=== PATIENT | female | born 1950 | race Caucasian/White ===

== ENCOUNTER 2016-08-15 13:52 | Emergency (ER) | payer OTHER ==
--- NOTE | 2016-08-15 14:18 | ED NURSING NOTES ---
Clinical Report - Nurses [facility] [address] [place] [address] 08/15/2016 13:52 Patient: LILLIAN DIAZ TRIAGE Triage time 14:01. Acuity: LEVEL 4. Chief Complaint: RIGHT EAR PAIN and LEFT EAR PAIN. Alert. --14:06 Alisha Kuhn R.N. 14:01 08/15/16. BP: 126/88. HR: 75. RR: 18. O2 saturation: 95%. Temp: 98.3 F. Pain level now 08/01. --14:06 Alisha Kuhn R.N. Weight: 90.7 kg stated. Height/Length: 69 inches Per Patient. BMI: 29.5. --14:01 Alisha Kuhn R.N. Medications BusPIRone HCl Oral (Tablet 15 mg) 1 tablet, at bedtime. Carbatrol Oral 300 mg 2 tabs BID. Co Q 10 Oral (Capsule 100 mg) 1 capsule, daily. Estradiol Transdermal 0.1 mg, weekly. Levothyroxine Sodium Oral 75 mcg, daily. [place] Citrate Oral 300 mg 2 tabs q day. Magnesium Oral (Capsule 400 mg) 1 capsule, 2x a day. Meloxicam Oral (Tablet 15 mg) 1 tablet, daily. Pristiq Oral (Tablet Extended Release 24 Hour 100 mg) 1 tablet, daily. Pristiq Oral 50mg , daily, one tab for the first 2 weeks-----than 2 tabs for second 2 week. Sertraline HCl Oral (Tablet 25 mg) 3 tablets, daily. Tums Oral. Vitamins/Minerals Oral. --14:03 Alisha Kuhn R.N. Allergies Codeine. Penicillins. PredniSONE. (edema) Reglan. --14:03 Alisha Kuhn R.N. History Arrived by private vehicle. Historian: patient. Accompanied by family. Onset. (about 3 days). Treatment W[employer] SPECIALIST: (took an old antibiotic). SOCIAL HX: Never smoker. No alcohol use or drug use. --14:06 Alisha Kuhn R.N. PROBLEMS: UTI - Urinary Tract Infection. Palpitations. Asthma. Seizure. Epilepsy. Bipolar Disorder. Osteoarthritis. Depression. Thyroid Disease. Deaf. --14:04 Alisha Kuhn R.N. ADDITIONAL SURGERIES: Ankle. Appendectomy. Bladder Suspension. Brain surgery. Carpal Tunnel Surgery. Cholecystectomy. Gangleon cyst. Hysterectomy. Oophorectomy. Salpingectomy. Tonsillectomy & Adenoidectomy. --14:04 Alisha Kuhn R.N. PHYSICAL ASSESSMENT GENERAL / NEURO / PSYCH: Alert. Appears in no acute distress. HEENT: Hearing deficit. --14:06 Alisha Kuhn R.N. NURSING PROGRESS NOTES Patient identifiers checked. Call light placed in reach. Patient ready for evaluation- chart flagged and PA notified. --14:07 Alisha Kuhn R.N. Locked/Released at 08/15/2016 15:28 by Alisha Kuhn R.N.
--- NOTE | 2016-08-15 14:18 | ED CLINICAL REPORT ---
Clinical Report - Physicians/Mid Levels [facility] [address] [place] [address] 08/15/2016 13:52 Patient: LILLIAN DIAZ Time Seen: 14:19 Aug 15 2016. Arrived- By private vehicle. Historian- patient and spouse. CPT: ER phys charges level 3 (#[id number]). HISTORY OF PRESENT ILLNESS Chief Complaint: EARACHE. This started yesterday and is still present. Onset during rest and light activity. Modifying factors. Not worsened by anything. Not relieved by anything. Location- right ear and left ear. The pain is described as mild. The patient has had ear pain. She has had right sided and left sided (possibly from hearing aids.). No ear drainage, hearing loss, nasal discharge or congestion or sinus pressure. No complaint of foreign body in the ear, sore throat or toothache. Similar symptoms previously: None. Recent medical care: The patient was seen recently at another facility in the office. REVIEW OF SYSTEMS No fever, chills, cough, difficulty breathing or chest pain. No nausea, vomiting or skin rash. PAST HISTORY See nurses notes. UTI - Urinary Tract Infection. Palpitations. Asthma. Seizure. Epilepsy. Bipolar Disorder. Osteoarthritis. Depression. Thyroid Disease. Deaf. ADDITIONAL SURGERIES: Ankle. Appendectomy. Bladder Suspension. Brain surgery. Carpal Tunnel Surgery. Cholecystectomy. Gangleon cyst. Hysterectomy. Oophorectomy. Salpingectomy. Tonsillectomy & Adenoidectomy. Medications: BusPIRone HCl Oral (Tablet 15 mg) 1 tablet, at bedtime. Carbatrol Oral 300 mg 2 tabs BID. Co Q 10 Oral (Capsule 100 mg) 1 capsule, daily. Estradiol Transdermal 0.1 mg, weekly. Levothyroxine Sodium Oral 75 mcg, daily. [place] Citrate Oral 300 mg 2 tabs q day. Magnesium Oral (Capsule 400 mg) 1 capsule, 2x a day. Meloxicam Oral (Tablet 15 mg) 1 tablet, daily. Pristiq Oral (Tablet Extended Release 24 Hour 100 mg) 1 tablet, daily. Pristiq Oral 50mg , daily, one tab for the first 2 weeks-----than 2 tabs for second 2 week. Sertraline HCl Oral (Tablet 25 mg) 3 tablets, daily. Tums Oral. Vitamins/Minerals Oral. Allergies: Codeine. Penicillins. PredniSONE. (edema) Reglan. SOCIAL HISTORY Never smoker. No alcohol use or drug use. ADDITIONAL NOTES The nursing notes have been reviewed. PHYSICAL EXAM Vital Signs: 08/15/2016 14:01 BP: 126/88. HR: 75. RR: 18. O2 saturation: 95%. Temp: 98.3 F. Appearance: Alert. No acute distress. Eyes: Eyes normal inspection. Ear (right): There is mild tenderness of the auricle . There is no erythema or fluctuance of the auricle. There is mild pain with movement of the auricle and erythema of the external canal. Right tympanic membrane normal. Ear (left): There is mild tenderness of the auricle . There is no erythema or fluctuance of the auricle. There is mild pain with movement of the auricle and erythema of the external canal. Left tympanic membrane normal. Throat: Pharynx normal. Nose: Nose normal. No tenderness to palpation/percussion over the sinuses. Neck: Normal inspection. Skin: Normal skin color. No rash. Neuro: Oriented X 3. PROGRESS AND PROCEDURES Patient/family counseled. Disposition: Discharged. Condition: stable. CLINICAL IMPRESSION Acute localized right and left otitis externa. Topical preparation prescribed. Systemic antibiotics not prescribed. INSTRUCTIONS Do not allow water in ear. (leave hearing aids out until better.). Warnings: Further evaluation is necessary. GENERAL WARNINGS: Return or contact your physician immediately if your condition worsens or changes unexpectedly, if not improving as expected, or if other problems arise. Your Current Medications: CONTINUE TAKING THE FOLLOWING MEDICATIONS: BusPIRone HCl Oral : Tablet 15 mg, 1 tablet at bedtime. Carbatrol Oral : 300 mg 2 tabs BID. Co Q 10 Oral : Capsule 100 mg, 1 capsule daily. Estradiol Transdermal : 0.1 mg weekly. Levothyroxine Sodium Oral : 75 mcg daily. [place] Citrate Oral : 300 mg 2 tabs q day. Magnesium Oral : Capsule 400 mg, 1 capsule 2x a day. Meloxicam Oral : Tablet 15 mg, 1 tablet daily. Pristiq Oral : Tablet Extended Release 24 Hour 100 mg, 1 tablet daily. Pristiq Oral : 50mg daily, one tab for the first 2 weeks-----than 2 tabs for second 2 week. Sertraline HCl Oral : Tablet 25 mg, 3 tablets daily. Tums Oral. Vitamins/Minerals Oral. Prescription Medications: Cortisporin otic suspension: Instill 4 drops into affected ear every 6 hours for 1 week. Dispense ten (10) mL. No refills. Substitution is permissible. Follow-up: Follow up with your doctor in one week. Call for an appointment. Understanding of the discharge instructions verbalized by patient and family. Discharge instructions reviewed with and understanding was verbalized by spouse. (Electronically signed by Yousif Desai MD 08/15/2016 14:25)
--- NOTE | 2016-08-15 14:18 | ED CLINICAL REPORT ---
Clinical Report - Physicians/Mid Levels [facility] [address] [place] [address] 08/15/2016 13:52 Patient: LILLIAN DIAZ Time Seen: 14:19 Aug 15 2016. Arrived- By private vehicle. Historian- patient and spouse. CPT: ER phys charges level 3 (#[id number]). HISTORY OF PRESENT ILLNESS Chief Complaint: EARACHE. This started yesterday and is still present. Onset during rest and light activity. Modifying factors. Not worsened by anything. Not relieved by anything. Location- right ear and left ear. The pain is described as mild. The patient has had ear pain. She has had right sided and left sided (possibly from hearing aids.). No ear drainage, hearing loss, nasal discharge or congestion or sinus pressure. No complaint of foreign body in the ear, sore throat or toothache. Similar symptoms previously: None. Recent medical care: The patient was seen recently at another facility in the office. REVIEW OF SYSTEMS No fever, chills, cough, difficulty breathing or chest pain. No nausea, vomiting or skin rash. PAST HISTORY See nurses notes. UTI - Urinary Tract Infection. Palpitations. Asthma. Seizure. Epilepsy. Bipolar Disorder. Osteoarthritis. Depression. Thyroid Disease. Deaf. ADDITIONAL SURGERIES: Ankle. Appendectomy. Bladder Suspension. Brain surgery. Carpal Tunnel Surgery. Cholecystectomy. Gangleon cyst. Hysterectomy. Oophorectomy. Salpingectomy. Tonsillectomy & Adenoidectomy. Medications: BusPIRone HCl Oral (Tablet 15 mg) 1 tablet, at bedtime. Carbatrol Oral 300 mg 2 tabs BID. Co Q 10 Oral (Capsule 100 mg) 1 capsule, daily. Estradiol Transdermal 0.1 mg, weekly. Levothyroxine Sodium Oral 75 mcg, daily. [place] Citrate Oral 300 mg 2 tabs q day. Magnesium Oral (Capsule 400 mg) 1 capsule, 2x a day. Meloxicam Oral (Tablet 15 mg) 1 tablet, daily. Pristiq Oral (Tablet Extended Release 24 Hour 100 mg) 1 tablet, daily. Pristiq Oral 50mg , daily, one tab for the first 2 weeks-----than 2 tabs for second 2 week. Sertraline HCl Oral (Tablet 25 mg) 3 tablets, daily. Tums Oral. Vitamins/Minerals Oral. Allergies: Codeine. Penicillins. PredniSONE. (edema) Reglan. SOCIAL HISTORY Never smoker. No alcohol use or drug use. ADDITIONAL NOTES The nursing notes have been reviewed. PHYSICAL EXAM Vital Signs: 08/15/2016 14:01 BP: 126/88. HR: 75. RR: 18. O2 saturation: 95%. Temp: 98.3 F. Appearance: Alert. No acute distress. Eyes: Eyes normal inspection. Ear (right): There is mild tenderness of the auricle . There is no erythema or fluctuance of the auricle. There is mild pain with movement of the auricle and erythema of the external canal. Right tympanic membrane normal. Ear (left): There is mild tenderness of the auricle . There is no erythema or fluctuance of the auricle. There is mild pain with movement of the auricle and erythema of the external canal. Left tympanic membrane normal. Throat: Pharynx normal. Nose: Nose normal. No tenderness to palpation/percussion over the sinuses. Neck: Normal inspection. Skin: Normal skin color. No rash. Neuro: Oriented X 3. PROGRESS AND PROCEDURES Patient/family counseled. Disposition: Discharged. Condition: stable. CLINICAL IMPRESSION Acute localized right and left otitis externa. Topical preparation prescribed. Systemic antibiotics not prescribed. INSTRUCTIONS Do not allow water in ear. (leave hearing aids out until better.). Warnings: Further evaluation is necessary. GENERAL WARNINGS: Return or contact your physician immediately if your condition worsens or changes unexpectedly, if not improving as expected, or if other problems arise. Your Current Medications: CONTINUE TAKING THE FOLLOWING MEDICATIONS: BusPIRone HCl Oral : Tablet 15 mg, 1 tablet at bedtime. Carbatrol Oral : 300 mg 2 tabs BID. Co Q 10 Oral : Capsule 100 mg, 1 capsule daily. Estradiol Transdermal : 0.1 mg weekly. Levothyroxine Sodium Oral : 75 mcg daily. [place] Citrate Oral : 300 mg 2 tabs q day. Magnesium Oral : Capsule 400 mg, 1 capsule 2x a day. Meloxicam Oral : Tablet 15 mg, 1 tablet daily. Pristiq Oral : Tablet Extended Release 24 Hour 100 mg, 1 tablet daily. Pristiq Oral : 50mg daily, one tab for the first 2 weeks-----than 2 tabs for second 2 week. Sertraline HCl Oral : Tablet 25 mg, 3 tablets daily. Tums Oral. Vitamins/Minerals Oral. Prescription Medications: Cortisporin otic suspension: Instill 4 drops into affected ear every 6 hours for 1 week. Dispense ten (10) mL. No refills. Substitution is permissible. Follow-up: Follow up with your doctor in one week. Call for an appointment. Understanding of the discharge instructions verbalized by patient and family. Discharge instructions reviewed with and understanding was verbalized by spouse. (Electronically signed by Yousif Desai MD 08/15/2016 14:25)
--- NOTE | 2016-08-15 14:18 | ED NURSING NOTES ---
Clinical Report - Nurses [facility] [address] [place] [address] 08/15/2016 13:52 Patient: LILLIAN DIAZ TRIAGE Triage time 14:01. Acuity: LEVEL 4. Chief Complaint: RIGHT EAR PAIN and LEFT EAR PAIN. Alert. --14:06 Alisha Kuhn R.N. 14:01 08/15/16. BP: 126/88. HR: 75. RR: 18. O2 saturation: 95%. Temp: 98.3 F. Pain level now 08/01. --14:06 Alisha Kuhn R.N. Weight: 90.7 kg stated. Height/Length: 69 inches Per Patient. BMI: 29.5. --14:01 Alisha Kuhn R.N. Medications BusPIRone HCl Oral (Tablet 15 mg) 1 tablet, at bedtime. Carbatrol Oral 300 mg 2 tabs BID. Co Q 10 Oral (Capsule 100 mg) 1 capsule, daily. Estradiol Transdermal 0.1 mg, weekly. Levothyroxine Sodium Oral 75 mcg, daily. [place] Citrate Oral 300 mg 2 tabs q day. Magnesium Oral (Capsule 400 mg) 1 capsule, 2x a day. Meloxicam Oral (Tablet 15 mg) 1 tablet, daily. Pristiq Oral (Tablet Extended Release 24 Hour 100 mg) 1 tablet, daily. Pristiq Oral 50mg , daily, one tab for the first 2 weeks-----than 2 tabs for second 2 week. Sertraline HCl Oral (Tablet 25 mg) 3 tablets, daily. Tums Oral. Vitamins/Minerals Oral. --14:03 Alisha Kuhn R.N. Allergies Codeine. Penicillins. PredniSONE. (edema) Reglan. --14:03 Alisha Kuhn R.N. History Arrived by private vehicle. Historian: patient. Accompanied by family. Onset. (about 3 days). Treatment BUSHEL GIRL: (took an old antibiotic). SOCIAL HX: Never smoker. No alcohol use or drug use. --14:06 Alisha Kuhn R.N. PROBLEMS: UTI - Urinary Tract Infection. Palpitations. Asthma. Seizure. Epilepsy. Bipolar Disorder. Osteoarthritis. Depression. Thyroid Disease. Deaf. --14:04 Alisha Kuhn R.N. ADDITIONAL SURGERIES: Ankle. Appendectomy. Bladder Suspension. Brain surgery. Carpal Tunnel Surgery. Cholecystectomy. Gangleon cyst. Hysterectomy. Oophorectomy. Salpingectomy. Tonsillectomy & Adenoidectomy. --14:04 Alisha Kuhn R.N. PHYSICAL ASSESSMENT GENERAL / NEURO / PSYCH: Alert. Appears in no acute distress. HEENT: Hearing deficit. --14:06 Alisha Kuhn R.N. NURSING PROGRESS NOTES Patient identifiers checked. Call light placed in reach. Patient ready for evaluation- chart flagged and PA notified. --14:07 Alisha Kuhn R.N. Locked/Released at 08/15/2016 15:28 by Alisha Kuhn R.N.
--- NOTE | 2016-08-15 15:28 | ED MED RECONCILIATION SUMMARY ---
Patient: LILLIAN DIAZ Medication Reconciliation Report [facility] VisitID: [id number] [address] [place] [address] 65y, F Registration Date/Time: 08/15/2016 Weight: 90.7 kg Height/Length: 69 in. BMI: 29.5 ALLERGIES: Codeine, Penicillins, PredniSONE, Reglan The patient's Home Medications are listed below: CONTINUE TAKING THE FOLLOWING MEDICATIONS: BusPIRone HCl Oral (15 mg) 1 tablet, at bedtime Carbatrol Oral 300 mg 2 tabs BID Co Q 10 Oral (100 mg) 1 capsule, daily Estradiol Transdermal 0.1 mg, weekly Levothyroxine Sodium Oral 75 mcg, daily [place] Citrate Oral 300 mg 2 tabs q day Magnesium Oral (400 mg) 1 capsule, 2x a day Meloxicam Oral (15 mg) 1 tablet, daily Pristiq Oral (100 mg) 1 tablet, daily Pristiq Oral 50mg , daily, one tab for the first 2 weeks-----than 2 tabs for second 2 week Sertraline HCl Oral (25 mg) 3 tablets, daily Tums Oral Vitamins/Minerals Oral The source(s) of the original Home Medication information: Not obtained. The following Medications were given to the patient in the Emergency Department: None. The following Medications were prescribed to the patient: Cortisporin otic suspension: Instill 4 drops into affected ear every 6 hours for 1 week. Dispense ten (10) mL. No refills. Substitution is permissible. -- Yousif Desai MD
--- NOTE | 2016-08-15 15:28 | ED MAR SUMMARY ---
..... Medication Administration Record [facility] [address], [place] [id number] Patient: LILLIAN DIAZ Visit ID: [id number] 65y, F Weight: 90.7 kg Height/Length: 69 in BMI: 29.5 ALLERGIES: Codeine, Penicillins, PredniSONE, Reglan
--- NOTE | 2016-08-15 15:28 | ED MAR SUMMARY ---
..... Medication Administration Record [facility] [address] [place], [place] [id number] Patient: LILLIAN DIAZ Visit ID: [id number] 65y, F Weight: 90.7 kg Height/Length: 69 in BMI: 29.5 ALLERGIES: Codeine, Penicillins, PredniSONE, Reglan
--- NOTE | 2016-08-15 15:28 | ED MED RECONCILIATION SUMMARY ---
Patient: LILLIAN DIAZ Medication Reconciliation Report [facility] VisitID: [id number] [address] [place] [address] 65y, F Registration Date/Time: 08/15/2016 Weight: 90.7 kg Height/Length: 69 in. BMI: 29.5 ALLERGIES: Codeine, Penicillins, PredniSONE, Reglan The patient's Home Medications are listed below: CONTINUE TAKING THE FOLLOWING MEDICATIONS: BusPIRone HCl Oral (15 mg) 1 tablet, at bedtime Carbatrol Oral 300 mg 2 tabs BID Co Q 10 Oral (100 mg) 1 capsule, daily Estradiol Transdermal 0.1 mg, weekly Levothyroxine Sodium Oral 75 mcg, daily [place] Citrate Oral 300 mg 2 tabs q day Magnesium Oral (400 mg) 1 capsule, 2x a day Meloxicam Oral (15 mg) 1 tablet, daily Pristiq Oral (100 mg) 1 tablet, daily Pristiq Oral 50mg , daily, one tab for the first 2 weeks-----than 2 tabs for second 2 week Sertraline HCl Oral (25 mg) 3 tablets, daily Tums Oral Vitamins/Minerals Oral The source(s) of the original Home Medication information: Not obtained. The following Medications were given to the patient in the Emergency Department: None. The following Medications were prescribed to the patient: Cortisporin otic suspension: Instill 4 drops into affected ear every 6 hours for 1 week. Dispense ten (10) mL. No refills. Substitution is permissible. -- Yousif Desai MD
--- NOTE | 2016-08-15 15:28 | ED DISCHARGE INSTRUCTIONS ---
Patient: LILLIAN DIAZ General Instructions [facility] VisitID: [id number] [address] [place] [address] 65y, F Registration Date/Time: 08/15/2016 Acute localized right and left otitis externa. Topical preparation prescribed. Systemic antibiotics not prescribed. INSTRUCTIONS Do not allow water in ear. (leave hearing aids out until better.). Warnings: Further evaluation is necessary. GENERAL WARNINGS: Return or contact your physician immediately if your condition worsens or changes unexpectedly, if not improving as expected, or if other problems arise. Your Current Medications: CONTINUE TAKING THE FOLLOWING MEDICATIONS: BusPIRone HCl Oral : Tablet 15 mg, 1 tablet at bedtime. Carbatrol Oral : 300 mg 2 tabs BID. Co Q 10 Oral : Capsule 100 mg, 1 capsule daily. Estradiol Transdermal : 0.1 mg weekly. Levothyroxine Sodium Oral : 75 mcg daily. [place] Citrate Oral : 300 mg 2 tabs q day. Magnesium Oral : Capsule 400 mg, 1 capsule 2x a day. Meloxicam Oral : Tablet 15 mg, 1 tablet daily. Pristiq Oral : Tablet Extended Release 24 Hour 100 mg, 1 tablet daily. Pristiq Oral : 50mg daily, one tab for the first 2 weeks-----than 2 tabs for second 2 week. Sertraline HCl Oral : Tablet 25 mg, 3 tablets daily. Tums Oral. Vitamins/Minerals Oral. Prescription Medications: Cortisporin otic suspension: Instill 4 drops into affected ear every 6 hours for 1 week. Dispense ten (10) mL. No refills. Substitution is permissible. Follow-up: Follow up with your doctor in one week. Call for an appointment. Understanding of the discharge instructions verbalized by patient and family. Discharge instructions reviewed with and understanding was verbalized by spouse. ADDITIONAL INFORMATION External Ear Infection [Adult] This is an infection in the ear canal due to an overgrowth of bacteria or fungus. This often occurs a few days after water gets trapped in the ear canal (swimming or bathing). It may also occur after cleaning too deeply in the ear canal with a cotton swab or other object. Sometimes hair care products get into the ear canal and cause this problem. There may be itching, redness, drainage, or swelling of the ear canal and temporary loss of hearing. Home Care: Do not try to clean the ear canal. That could push pus and bacteria deeper into the canal. Use the drops prescribed to reduce swelling and fight the infection. If an EAR WICK was placed in the ear canal, apply drops right onto the end of the wick. The wick will draw the medicine into the ear canal even if it is swollen closed. Do not allow water to get into your ear when bathing. No swimming during this time. A cotton ball may be loosely placed in the outer ear to absorb any drainage. You may use acetaminophen (Tylenol) or ibuprofen (Motrin, Advil) to control pain, unless another medicine was prescribed. [NOTE: If you have chronic liver or kidney disease or ever had a stomach ulcer or GI bleeding, talk with your doctor before using these medicines.] Preventing Future Infections: You can usually avoid this problem by using an eardrop that removes the water from your ear canal when you feel there is water trapped there. You can get these drops over the counter (Swim Ear, Aqua Ear and other brands). Follow Up with your doctor or this facility in one week or as instructed by our staff. Get Prompt Medical Attention if any of the following occur: Ear pain becomes worse or does not begin to improve after 3 days of treatment Redness or swelling of the outer ear occurs or gets worse Headache, painful or stiff neck, Feeling drowsy or confused Fever of 100.4F (38C) or higher, or as directed by your healthcare provider Seizure You have been given the following additional information: External Ear Infection (Adult) Do not allow water in ear. (Electronically signed by Yousif Desai MD 08/15/2016 14:25)
== END 2016-08-15 14:25 | disposition home or self-care (01) ==
LOC: ED SRH 13:52
DX: H60.593 Other noninfective acute otitis externa, bilateral (principal); E07.9 Disorder of thyroid, unspecified; G40.909 Epilepsy, unspecified, not intractable, without status epilepticus; Z88.0 Allergy status to penicillin; Z88.5 Allergy status to narcotic agent; Z88.8 Allergy status to other drugs, medicaments and biological substances

== ENCOUNTER 2016-10-03 13:06 | Emergency (ER) | payer OTHER ==
--- NOTE | 2016-10-03 16:17 | ED CLINICAL REPORT ---
Clinical Report - Physicians/Mid Levels [facility]ly [facility] [address] [place] [address] 10/03/2016 13:07 Patient: LILLIAN DIAZ Time Seen: 13:15; initial patient contact, initial documentation, patient care assumed. Arrived- By private vehicle. Historian- patient and significant other. HISTORY OF PRESENT ILLNESS Chief Complaint: DYSURIA. This started 2 days ago and still present but is improving. The symptoms are described as moderate. Modifying factors. Not worsened by anything. Not relieved by anything. The patient has had abdominal pain and pelvic pain. No vaginal pain, low back pain, flank pain, vaginal discharge or pain with urination. No urinary frequency or urgency of urination. The patient has had hematuria. (self catheterizes herself at least twice daily and lately the urine has been darker than usual). Similar symptoms previously: None. Recent medical care: Not recently seen/assessed. REVIEW OF SYSTEMS The patient has had nausea. She has had vomiting (vomiting all day yesterday, only once today). She has had mild loose stools. This has occurred twice. No bloody, watery, mucous containing or blood-tinged diarrhea. No black stools, fever, difficulty breathing or chest pain. All systems otherwise negative, except as recorded above. PAST HISTORY See nurses notes. ( PROBLEMS: Otitis Externa. UTI - Urinary Tract Infection. Palpitations. Asthma. Seizure. Epilepsy. Bipolar Disorder. Osteoarthritis. Depression. Thyroid Disease. Deaf. --13:23 Natalie Loyola R.N.). SOCIAL HISTORY Never smoker. No alcohol use or drug use. Recent travel by airplane in the last week- [facility]ly [facility]. Participated in outdoor activities (flew back yesterday from [place], went to [facility]). No recent foreign travel or travel in endemic area. Is a local resident. FAMILY HISTORY Negative. ADDITIONAL NOTES The nursing notes have been reviewed with agreement regarding the chief complaint, HPI, ROS, PMH and patient medications and allergies. PHYSICAL EXAM Vital Signs: 10/03/2016 13:17 BP: 131/83. HR: 72. RR: 14. O2 saturation: 94%. Temp: 97.8 F. Pain level now: 09/29. Have been reviewed as normal and appear to be correct. Appearance: Alert. Oriented X3. No acute distress. HEENT: Normal external inspection. ENT: Pharynx normal. Neck: Neck supple. CVS: Heart sounds normal. Respiratory: No respiratory distress. Breath sounds normal. Chest nontender. Abdomen: Soft and nontender. Bowel sounds normal. No organomegaly. No mass. Back: Normal external inspection. Skin: Skin warm and dry. Normal skin color. No rash. Normal skin turgor. Extremities: Extremities nontender. No lower extremity edema. Neuro: Oriented X 3. Mood/affect normal. No motor deficit. No sensory deficit. LABS, X-RAYS, AND EKG Laboratory Tests: UA-Culture if indicated: (MAKAYLA: 10/03/2016 14:37) ( [facility] [place]03[place] 15:24) Final results Test Result Flag Units (Reference) URINE COLOR YELLOW URINE APPEARANCE CLEAR URINE GLUCOSE NEGATIVE (NEGATIVE) URINE BILIRUBIN NEGATIVE (NEGATIVE) URINE KETONE NEGATIVE (NEGATIVE) URINE SPECIFIC GRAVITY 1.010 (1.010-1.030) URINE PH 6.5 (5.0-8.0) URINE PROTEIN NEGATIVE (NEGATIVE) URINE UROBILINOGEN 0.2 EU/dL (0.2-1.0) URINE NITRITE NEGATIVE (NEGATIVE) URINE BLOOD NEGATIVE (NEGATIVE) URINE LEUK ESTERASE NEGATIVE (NEGATIVE) URINE RBC 0-1 rbc/hpf (0-1) URINE WBC 3-5 wbc/hpf (0-1) URINE EPITHELIAL CELLS 1-3 EPI/hpf (0-5) URINE BACTERIA MANY (4+) (NONE SEEN) URINE COMMENT CULTURE INDICATED URINE CULTURES ARE SET-UP BASED ON THE FOLLOWING CRITERIA:POSITIVE NITRITEPOSITIVE LEUKOCYTE ESTERASEGREATER THAN 10 WHITE BLOOD CELLSMODERATE (2+) OR GREATER BACTERIA CBC w Diff: (MAKAYLA: 10/03/2016 14:07) ( [facility] 10/03/2016 14:16) Final results Test Result Flag Units (Reference) WHITE BLOOD COUNT 7.4 K/uL (4.5-11.5) RED BLOOD COUNT 3.75 L M/uL (4.00-5.20) HEMOGLOBIN 12.6 gm/dL (12.0-16.0) HEMATOCRIT 37.5 % (36.0-46.0) MEAN CELL VOLUME 100 fL (80-100) MEAN CORPUSCULAR HGB 34 pg (26-34) MEAN CORPUSCULAR HGB CONC 34 g/dL (31-37) RED CELL DISTRIBUTION WIDTH 13.4 % (11.6-14.8) PLATELET COUNT 280 K/uL (150-400) NEUTROPHIL % 63.2 % (50-75) LYMPH % 24.8 L % (25-40) MONO % 7.1 % (3-14) EOSINOPHIL % 4.3 H % (0-4) BASOPHIL % 0.6 % (0-2) [id number]: (MAKAYLA: 10/03/2016 14:07) ( MsgRcvd 10/03/2016 14:38) Final results Test Result Flag Units (Reference) CARBAMAZEPINE/TEGRETOL 8.7 ug/mL (4.0-12.0) CMP: (MAKAYLA: 10/03/2016 14:07) ( WagRcvd 10/03/2016 14:34) Final results Test Result Flag Units (Reference) GLUCOSE 102 mg/dL (70-110) BUN 15 mg/dL (7-18) CREATININE 1.0 mg/dL (0.6-1.3) Estimated GFR 59.14 mL/min Estimated GFR- >60 mL/min Note: Persistent reduction over 3 months in eGFR<60 mL/min/1.73 m2 defines CKD. Patients with eGFR values>=60 mL/min/1.73 m2 may also have CKD if evidence ofpersistent proteinuria. Additional information may be foundat [email or web address].org. SODIUM 141 mmol/L (136-145) POTASSIUM 3.6 mmol/L (3.5-5.1) CHLORIDE 106 mmol/L (98-107) CARBON DIOXIDE 28 mmol/L (21-32) CALCIUM 9.3 mg/dL (8.5-10.1) TOTAL PROTEIN 6.9 g/dL (6.4-8.2) ALBUMIN 3.4 g/dL (3.3-5.0) BILIRUBIN, TOTAL 0.5 mg/dL (0.0-1.0) ALKALINE PHOSPHATASE 81 U/L (46-116) AST (SGOT) 24 U/L (15-37) ALT (SGPT) 23 U/L (12-78) LIPASE 86 U/L (73-393) AMYLASE 31 U/L (25-115) . PROGRESS AND PROCEDURES Course of Care: 10/03/2016 14:53 BP: 136/96. HR: 66. RR: 15. O2 saturation: 97%. Pain level now: 5/10. Vital Signs: have been reviewed as normal and appear to be correct. Patient and spouse counseled in person regarding the patient's stable condition, test results and diagnosis. 15:27. Differential Diagnosis: I considered gastritis, peptic ulcer disease, ischemia, gastroesophageal reflux disease, gastroparesis, Crohn's disease, ulcerative colitis, small bowel obstruction, gastric outlet obstruction, colonic obstruction, colon cancer, gastroenteritis, cholecystitis, pancreatitis, viral syndrome, enterocolitis, urinary tract infection, hepatitis and sepsis as a possible cause of vomiting in this patient. This is a partial list of diagnoses considered. (urosepsis). Above considerations are based on history, physical exam, reassessment and laboratory data. Differential diagnosis was discussed with patient and patient's spouse. Disposition: Discharged home in good and improved condition (16:16). Condition: good and stable. CLINICAL IMPRESSION Acute urinary tract infection with cystitis. No pyelonephritis or hematuria. Not associated with indwelling catheter or obstruction. Acute noninfectious gastroenteritis. INSTRUCTIONS Warnings: GENERAL WARNINGS: Return or contact your physician immediately if your condition worsens or changes unexpectedly, if not improving as expected, or if other problems arise. Specifically return if problem worsens. Prescription Medications: Zofran 4 mg: Take 1 orally every six hours as needed for nausea/vomiting. Dispense ten (10). No refills. Substitution is permissible. Cipro 500 mg: take 1 tab orally every 12 hours for 10 days. Dispense twenty (20). No refills. Substitution is permissible. Ultram 50 mg tablets: take 1-2 orally every 6 hours as needed for pain. Dispense twenty (20). No refills. Substitution is permissible. Follow-up: Follow up with your doctor in about two days even if well. Call for an appointment. Summary of care provided to patient and family. Understanding of the discharge instructions verbalized by patient. (Electronically signed by Marta Rosario A.R.N.P. 10/03/2016 17:51)
--- NOTE | 2016-10-03 16:17 | ED ORDER SUMMARY ---
..... Patient: LILLIAN DIAZ OrderSheet VisitID: [id number] [place] [address] 66y, F Registration Date/Time: 10/03/2016 ORDER SHEET Weight: 92.5 kg (stated) Allergies: Codeine, Penicillins, PredniSONE, Reglan GENERAL ORDERS: CBC w Diff Urgent (13:38 10/03/2016 HBivens A.R.N.P.) (Ack 13:38 IJurca ER Tech1) (14:12 RCollier R.N.) CMP Urgent (13:38 10/03/2016 HBivens A.R.N.P.) (Ack 13:38 IJurca ER Tech1) (14:12 RCollier R.N.) UA-Culture if indicated Urgent (13:38 10/03/2016 HBivens A.R.N.P.) (Ack 13:38 IJurca ER Tech1) (14:42 RMarsden R.N.) Amylase Urgent (13:38 10/03/2016 HBivens A.R.N.P.) (Ack 13:38 IJurca ER Tech1) (14:12 RCollier R.N.) Lipase Urgent (13:38 10/03/2016 HBivens A.R.N.P.) (Ack 13:38 IJurca ER Tech1) (14:12 RCollier R.N.) Carbamazepine (Tegretol) Urgent (13:57 10/03/2016 HBivens A.R.N.P.) (Ack 13:58 IJurca ER Tech1) (14:12 RCollier R.N.) MEDICATION ORDERS: IV FLUIDS: IV NS : initial bolus 1000 mL (1000 mL/hr), then none - (NOW) (13:37 10/03/2016 HBivens A.R.N.P.) (Ack 13:41 RMarsden R.N.) (14:41 RMarsden R.N.) Zofran IV 4 mg (NOW) (13:37 10/03/2016 HBivens A.R.N.P.) (Ack 13:41 RMarsden R.N.) Toradol IV 30 mg (NOW) (13:37 10/03/2016 HBivens A.R.N.P.) (Ack 13:41 RMarsden R.N.) (14:42 RMarsden R.N.) IV Saline Lock (13:38 10/03/2016 HBivens A.R.N.P.) (Ack 13:41 RMarsden R.N.) (14:40 RMarsden R.N.) Dilaudid IV 1 mg (HIGH ALERT MEDICATION, NOW) (15:27 10/03/2016 HBivens A.R.N.P.) (16:38 LSullivan R.N.) Zofran IV 4 mg (NOW) (15:27 10/03/2016 HBivens A.R.N.P.) (16:37 LSullivan R.N.) ORDER SHEET NOTES: [Electronically signed by Marta RosarioR.N.PBoby (17:51 10/03/2016)] [Electronically signed by Natalie Loyola R.N. (18:54 10/03/2016)] [Electronically locked/signed by Natalie Loyola R.N. (18:54 10/03/2016)]
--- NOTE | 2016-10-03 16:17 | ED ORDER SUMMARY ---
..... Patient: LILLIAN DIAZ OrderSheet [facility] VisitID: [id number] [place] [address] 66y, F Registration Date/Time: 10/03/2016 ORDER SHEET Weight: 92.5 kg (stated) Allergies: Codeine, Penicillins, PredniSONE, Reglan GENERAL ORDERS: CBC w Diff Urgent (13:38 10/03/2016 HBivens A.R.N.P.) (Ack 13:38 IJurca ER Tech1) (14:12 RCollier R.N.) CMP Urgent (13:38 10/03/2016 HBivens A.R.N.P.) (Ack 13:38 IJurca ER Tech1) (14:12 RCollier R.N.) UA-Culture if indicated Urgent (13:38 10/03/2016 HBivens A.R.N.P.) (Ack 13:38 IJurca ER Tech1) (14:42 RMarsden R.N.) Amylase Urgent (13:38 10/03/2016 HBivens A.R.N.P.) (Ack 13:38 IJurca ER Tech1) (14:12 RCollier R.N.) Lipase Urgent (13:38 10/03/2016 HBivens A.R.N.P.) (Ack 13:38 IJurca ER Tech1) (14:12 RCollier R.N.) Carbamazepine (Tegretol) Urgent (13:57 10/03/2016 HBivens A.R.N.P.) (Ack 13:58 IJurca ER Tech1) (14:12 RCollier R.N.) MEDICATION ORDERS: IV FLUIDS: IV NS : initial bolus 1000 mL (1000 mL/hr), then none - (NOW) (13:37 10/03/2016 HBivens A.R.N.P.) (Ack 13:41 RMarsden R.N.) (14:41 RMarsden R.N.) Zofran IV 4 mg (NOW) (13:37 10/03/2016 HBivens A.R.N.P.) (Ack 13:41 RMarsden R.N.) Toradol IV 30 mg (NOW) (13:37 10/03/2016 HBivens A.R.N.P.) (Ack 13:41 RMarsden R.N.) (14:42 RMarsden R.N.) IV Saline Lock (13:38 10/03/2016 HBivens A.R.N.P.) (Ack 13:41 RMarsden R.N.) (14:40 RMarsden R.N.) Dilaudid IV 1 mg (HIGH ALERT MEDICATION, NOW) (15:27 10/03/2016 HBivens A.R.N.P.) (16:38 LSullivan R.N.) Zofran IV 4 mg (NOW) (15:27 10/03/2016 HBivens A.R.N.P.) (16:37 LSullivan R.N.) ORDER SHEET NOTES: [Electronically signed by Marta RosarioR.N.PBoby (17:51 10/03/2016)] [Electronically signed by Natalie Loyola R.N. (18:54 10/03/2016)] [Electronically locked/signed by Natalie Loyola R.N. (18:54 10/03/2016)]
--- NOTE | 2016-10-03 16:17 | ED NURSING NOTES ---
Clinical Report - Nurses [facility] [address] [place] [address] 10/03/2016 13:07 [id number] Triage time 13:17. Acuity: LEVEL 4. Chief Complaint: PELVIC PAIN. 13:28 10/03/16. Alert. No acute distress. SEPSIS SCREEN: Sepsis Screen. Negative (no infection suspected/documented). SYLVIA COMA SCORE: [place] Coma Scale: 15- eyes open spontaneously (4); best verbal response- oriented x 4 (5); best motor response- obeys commands (6). --13:28 Natalie Loyola R.N. 13:17 10/03/16. BP: 131/83. HR: 72. RR: 14. O2 saturation: 94%. Temp: 97.8 F. Pain level now: 09/29. --13:28 Natalie Loyola R.N. 13:30 10/03/16. --13:31 Natalie Loyola R.N. Weight: 92.5 kg stated. Height/Length: 67 inches. BMI: 32. --13:25 Natalie Loyola R.N. Medications BusPIRone HCl Oral (Tablet 15 mg) 1 tablet, at bedtime. --13:23 Natalie Loyola R.N. Carbatrol Oral 300 mg 2 tabs BID. Co Q 10 Oral (Capsule 100 mg) 1 capsule, daily. Estradiol Transdermal 0.1 mg, weekly. Levothyroxine Sodium Oral 75 mcg, daily. [place] Citrate Oral 300 mg 2 tabs q day. Magnesium Oral (Capsule 400 mg) 1 capsule, 2x a day. Meloxicam Oral (Tablet 15 mg) 1 tablet, daily. Pristiq Oral (Tablet Extended Release 24 Hour 100 mg) 1 tablet, daily. Pristiq Oral 50mg , daily, one tab for the first 2 weeks-----than 2 tabs for second 2 week. Sertraline HCl Oral (Tablet 25 mg) 3 tablets, daily. Tums Oral. Vitamins/Minerals Oral. --13:23 Natalie Loyola R.N. Allergies Codeine. Penicillins. PredniSONE. (edema) Reglan. --13:23 Natalie Loyola R.N. History Arrived by private vehicle. Historian: patient. Accompanied by family. Primary physician (Dr Xiao). ( PCP was not notified prior to arrival). Onset. (two days ago). 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 Patient reports she has used a catheter to urinate for the past two years.). Last oral intake by patient was breakfast. PAST MEDICAL HX: ( Patient reports she had botox treatment in her bladder a couple of months ago.). SOCIAL HX: Never smoker. No alcohol use or drug use. FALL RISK ASSESSMENT: Fall risk assessment completed. No fall risk identified. NUTRITIONAL RISK ASSESSMENT: The nutritional risk assessment revealed no deficiencies. FUNCTIONAL ASSESSMENT: Functional assessment: no impairments noted. LEARNING NEEDS ASSESSMENT: The learning needs assessment revealed no barriers. SKIN INTEGRITY ASSESSMENT: Skin integrity risk assessment completed. No skin integrity risk identified. --13:28 Natalie Loyola R.N. ( Patient reports she "vomited all day yesterday"). --13:31 Natalie Loyola R.N. PROBLEMS: Otitis Externa. UTI - Urinary Tract Infection. Palpitations. Asthma. Seizure. Epilepsy. Bipolar Disorder. Osteoarthritis. Depression. Thyroid Disease. Deaf. --13:23 Natalie Loyola R.N. ADDITIONAL SURGERIES: Ankle. Appendectomy. Bladder Suspension. Brain surgery. Carpal Tunnel Surgery. Cholecystectomy. Gangleon cyst. Hysterectomy. Oophorectomy. Salpingectomy. Tonsillectomy & Adenoidectomy. --13:24 Natalie Loyola R.N. Interventions ID band on patient. To treatment room. --13:28 Natalie Loyola R.N. PHYSICAL ASSESSMENT 13:34 10/03/16. To room via wheelchair. GENERAL / NEURO / PSYCH: Alert. Oriented X 4. Appears in pain. (patient appears in pain when moving or sitting up). HEENT: Mucous membranes are pink. RESPIRATORY: Respirations not labored. CVS: Capillary refill less than 2 seconds. GI / : Abdomen soft. Abdominal tenderness in the upper and lower abdomen. SKIN: Skin is warm and dry. --13:34 Natalie Loyola R.N. NURSING PROGRESS NOTES 14:10 10/03/2016 Site #1 started via IV in the left antecubital space with an 20g angiocath, with aseptic technique and good blood return; one attempt. Blood drawn: rainbow set. Labeled in the presence of the patient and sent to the lab. Saline lock flushed with 10 mL saline. --14:10 Shirin Soto R.N. 14:26 10/03/2016 Started bag #1 1000 mL IV Fluids IV NS (Saline); bolus of 999 mL over 1 hour(s) via site #1 via IV pump. Allergies verified and confirmed 5 rights. IV patency established. IV site checked: no pain, redness, or swelling. IV flushed thoroughly pre- and post-medication administration. --14:41 Natalie Loyola R.N. 14:30 10/03/2016 Toradol IVP 30 mg given over 2 minute(s) via site #1. Allergies verified and confirmed 5 rights. IV patency established. IV site checked: no pain, redness, or swelling. IV flushed thoroughly pre- and post-medication administration. IVP given by RN. --14:42 Natalie Loyola R.N. 14:32 10/03/2016 Zofran (Ondansetron HCl) IVP 4 mg given over 2 minute(s) via site #1. Allergies verified and confirmed 5 rights. IV patency established. IV site checked: no pain, redness, or swelling. IV flushed thoroughly pre- and post-medication administration. IVP given by RN. --14:42 Natalie Loyola R.N. 14:43 10/03/16. Patient gowned. Patient ID band checked for patient name and birthdate: patient confirmed. Patient verbalized understanding. Catheterized urine collected with return of yellow-colored clear urine; sample sent to lab for urinalysis. Specimen labeled in the presence of the patient. Two patient identifiers checked. Call light placed in reach. Side rails up x 2. Bed placed in lowest position. Brakes of bed on. Patient and family informed about reason for wait and about plan of care. --14:43 Natalie Loyola R.N. 14:53 10/03/16. BP: 136/96. HR: 66. RR: 15. O2 saturation: 97%. Temp: deferred. Pain level now: 10/29. --14:57 Natalie Loyola R.N. 14:57 10/03/16. Reassessment after medication administered. She has had no adverse reaction. Overall patient status- she states feels worse (Patient states "my pain is worse than before but my stomach feels better."). Patient and family informed about reason for wait and about plan of care. --14:57 Natalie Loyola R.N. 15:28 10/03/2016 Zofran (Ondansetron HCl) IVP 4 mg given over 2 minute(s) via site #1. Allergies verified and confirmed 5 rights. --16:37 Indira Tobias R.N. 15:30 10/03/2016 Dilaudid (HYDROmorphone HCl PF) IVP 1 mg given over 2 minute(s) via site #1. Allergies verified, confirmed 5 rights and sedative warning given. --16:38 Indira Tobias R.N. DISPOSITION / DISCHARGE 16:28 10/03/16. BP: 116/82. HR: 74. RR: 16. O2 saturation: 97%. Temp: 98.4 F. Pain level now: 11/29. --16:30 Natalie Loyola R.N. 16:30 10/03/2016 IV Fluids IV NS Discontinued: bag #1 completed upon discharge. Total amount infused: 1000 mL. IV patency established. IV site checked: no pain, redness, or swelling. IV flushed thoroughly. --16:47 Natalie Loyola R.N. 16:30 10/03/16. --16:30 Natalie Loyola R.N. 16:32 10/03/2016 Site #1 removed upon discharge. Manual pressure and bandaid applied. --16:47 Natalie Loyola R.N. 16:48 10/03/16. No learning barriers present. Discharge instructions provided and reviewed with the patient and spouse. Reviewed warnings. Reviewed medication(s). Treatments reviewed. Reviewed diet. Patient and spouse verbalized understanding. Written instructions provided in [place]. The patient was discharged by the nurse practitioner. She was discharged home and accompanied by spouse. She left the Emergency Department in a wheelchair and via private vehicle. Spouse driving. --16:48 Natalie Loyola R.N. Locked/Released at 10/03/2016 18:54 by Natalie Loyola R.N.
--- NOTE | 2016-10-03 18:54 | ED MAR SUMMARY ---
..... Medication Administration Record [facility] [address] [place] [address] Patient: LILLIAN DIAZ Visit ID: [id number] 66y, F Weight: 92.5 kg Height/Length: 67 in BMI: 32 ALLERGIES: Codeine, Penicillins, PredniSONE, Reglan Start 14:26 10/03/2016 Natalie Loyola R.N., Stop 16:30 10/03/2016 Natalie Loyola R.N. Medication Administered: IV NS (SALINE), Dose: IV Fluids, Bolus: 999 mL over 1 hour(s), Dispensed: 1000 mL bag, Site: #1 left AC. Medication Ordered: IV NS : initial bolus 1000 mL (1000 mL/hr), then none - (NOW). Given 14:10/03/2016 Natalie Loyola R.N. Medication Administered: TORADOL [IVP], Dose: 30 mg IVP over 2 minute(s), Site: #1 left AC. Medication Ordered: Toradol IV 30 mg (NOW). Given 14:32 10/03/2016 Natalie Loyola R.N. Medication Administered: ZOFRAN [IVP] (ONDANSETRON HCL), Dose: 4 mg IVP over 2 minute(s), Site: #1 left AC. Medication Ordered: Zofran IV 4 mg (NOW). Given 15:10/03/2016 Indira Tobias RBobyNBoby Medication Administered: ZOFRAN [IVP] (ONDANSETRON HCL), Dose: 4 mg IVP over 2 minute(s), Site: #1 left AC. Medication Ordered: Zofran IV 4 mg (NOW). Given 15:10/03/2016 Indira Tobias RBobyNBoby Medication Administered: DILAUDID [IVP] (HYDROMORPHONE HCL PF), Dose: 1 mg IVP over 2 minute(s), Site: #1 left AC. Medication Ordered: Dilaudid IV 1 mg (HIGH ALERT MEDICATION, NOW).
--- NOTE | 2016-10-03 18:54 | ED MED RECONCILIATION SUMMARY ---
Patient: LILLIAN DIAZ Medication Reconciliation Report [facility] VisitID: [id number] [address] [place] [address] 66y, F Registration Date/Time: 10/03/2016 Weight: 92.5 kg Height/Length: 67 in. BMI: 32.0 ALLERGIES: Codeine, Penicillins, PredniSONE, Reglan The patient's Home Medications are listed below: THE FOLLOWING MEDICATIONS NEED TO BE RECONCILED: BusPIRone HCl Oral (15 mg) 1 tablet, at bedtime Carbatrol Oral 300 mg 2 tabs BID Co Q 10 Oral (100 mg) 1 capsule, daily Estradiol Transdermal 0.1 mg, weekly Levothyroxine Sodium Oral 75 mcg, daily [place] Citrate Oral 300 mg 2 tabs q day Magnesium Oral (400 mg) 1 capsule, 2x a day Meloxicam Oral (15 mg) 1 tablet, daily Pristiq Oral (100 mg) 1 tablet, daily Pristiq Oral 50mg , daily, one tab for the first 2 weeks-----than 2 tabs for second 2 week Sertraline HCl Oral (25 mg) 3 tablets, daily Tums Oral Vitamins/Minerals Oral The source(s) of the original Home Medication information: Not obtained. The following Medications were given to the patient in the Emergency Department: IV NS IV Fluids bolus 999 mL over 1 hour(s), administered: 10/03/2016 2:26:00 PM Zofran [IVP] IVP 4 mg, administered: 10/03/2016 2:32:00 PM Toradol [IVP] IVP 30 mg, administered: 10/03/2016 2:30:00 PM Zofran [IVP] IVP 4 mg, administered: 10/03/2016 3:28:00 PM Dilaudid [IVP] IVP 1 mg, administered: 10/03/2016 3:30:00 PM The following Medications were prescribed to the patient: Zofran 4 mg: Take 1 orally every six hours as needed for nausea/vomiting. Dispense ten (10). No refills. Substitution is permissible. -- Marta Rosario A.R.N.P. Cipro 500 mg: take 1 tab orally every 12 hours for 10 days. Dispense twenty (20). No refills. Substitution is permissible. -- Marta Rosario A.R.N.PBoby Ultram 50 mg tablets: take 1-2 orally every 6 hours as needed for pain. Dispense twenty (20). No refills. Substitution is permissible. -- Marta Rosario A.R.N.P.
--- NOTE | 2016-10-03 18:54 | ED MAR SUMMARY ---
..... Medication Administration Record [facility] [address] [place] [address] Patient: LILLIAN DIAZ Visit ID: [id number] 66y, F Weight: 92.5 kg Height/Length: 67 in BMI: 32 ALLERGIES: Codeine, Penicillins, PredniSONE, Reglan Start 14:26 10/03/2016 Natalie Loyola R.N., Stop 16:30 10/03/2016 Natalie Loyola R.N. Medication Administered: IV NS (SALINE), Dose: IV Fluids, Bolus: 999 mL over 1 hour(s), Dispensed: 1000 mL bag, Site: #1 left AC. Medication Ordered: IV NS : initial bolus 1000 mL (1000 mL/hr), then none - (NOW). Given 14:10/03/2016 Natalie Loyola R.N. Medication Administered: TORADOL [IVP], Dose: 30 mg IVP over 2 minute(s), Site: #1 left AC. Medication Ordered: Toradol IV 30 mg (NOW). Given 14:32 10/03/2016 Natalie Loyola R.N. Medication Administered: ZOFRAN [IVP] (ONDANSETRON HCL), Dose: 4 mg IVP over 2 minute(s), Site: #1 left AC. Medication Ordered: Zofran IV 4 mg (NOW). Given 15:10/03/2016 Indira Tobias RBobyNBoby Medication Administered: ZOFRAN [IVP] (ONDANSETRON HCL), Dose: 4 mg IVP over 2 minute(s), Site: #1 left AC. Medication Ordered: Zofran IV 4 mg (NOW). Given 15:10/03/2016 Indira Tobias RBobyNBoby Medication Administered: DILAUDID [IVP] (HYDROMORPHONE HCL PF), Dose: 1 mg IVP over 2 minute(s), Site: #1 left AC. Medication Ordered: Dilaudid IV 1 mg (HIGH ALERT MEDICATION, NOW).
--- NOTE | 2016-10-03 18:54 | ED MED RECONCILIATION SUMMARY ---
Patient: LILLIAN DIAZ Medication Reconciliation Report [facility] VisitID: [id number] [place] [address] 66y, F Registration Date/Time: 10/03/2016 Weight: 92.5 kg Height/Length: 67 in. BMI: 32.0 ALLERGIES: Codeine, Penicillins, PredniSONE, Reglan The patient's Home Medications are listed below: THE FOLLOWING MEDICATIONS NEED TO BE RECONCILED: BusPIRone HCl Oral (15 mg) 1 tablet, at bedtime Carbatrol Oral 300 mg 2 tabs BID Co Q 10 Oral (100 mg) 1 capsule, daily Estradiol Transdermal 0.1 mg, weekly Levothyroxine Sodium Oral 75 mcg, daily [place] Citrate Oral 300 mg 2 tabs q day Magnesium Oral (400 mg) 1 capsule, 2x a day Meloxicam Oral (15 mg) 1 tablet, daily Pristiq Oral (100 mg) 1 tablet, daily Pristiq Oral 50mg , daily, one tab for the first 2 weeks-----than 2 tabs for second 2 week Sertraline HCl Oral (25 mg) 3 tablets, daily Tums Oral Vitamins/Minerals Oral The source(s) of the original Home Medication information: Not obtained. The following Medications were given to the patient in the Emergency Department: IV NS IV Fluids bolus 999 mL over 1 hour(s), administered: 10/03/2016 2:26:00 PM Zofran [IVP] IVP 4 mg, administered: 10/03/2016 2:32:00 PM Toradol [IVP] IVP 30 mg, administered: 10/03/2016 2:30:00 PM Zofran [IVP] IVP 4 mg, administered: 10/03/2016 3:28:00 PM Dilaudid [IVP] IVP 1 mg, administered: 10/03/2016 3:30:00 PM The following Medications were prescribed to the patient: Zofran 4 mg: Take 1 orally every six hours as needed for nausea/vomiting. Dispense ten (10). No refills. Substitution is permissible. -- Marta Rosario A.R.N.P. Cipro 500 mg: take 1 tab orally every 12 hours for 10 days. Dispense twenty (20). No refills. Substitution is permissible. -- Marta Rosario A.R.N.PBoby Ultram 50 mg tablets: take 1-2 orally every 6 hours as needed for pain. Dispense twenty (20). No refills. Substitution is permissible. -- Marta Rosario A.R.N.P.
--- NOTE | 2016-10-03 18:54 | ED DISCHARGE INSTRUCTIONS ---
Patient: LILLIAN DIAZ General Instructions [facility] VisitID: [id number] [place] [address] 66y, F Registration Date/Time: 10/03/2016 Acute urinary tract infection with cystitis. No pyelonephritis or hematuria. Not associated with indwelling catheter or obstruction. Acute noninfectious gastroenteritis. INSTRUCTIONS Warnings: GENERAL WARNINGS: Return or contact your physician immediately if your condition worsens or changes unexpectedly, if not improving as expected, or if other problems arise. Specifically return if problem worsens. Prescription Medications: Zofran 4 mg: Take 1 orally every six hours as needed for nausea/vomiting. Dispense ten (10). No refills. Substitution is permissible. Cipro 500 mg: take 1 tab orally every 12 hours for 10 days. Dispense twenty (20). No refills. Substitution is permissible. Ultram 50 mg tablets: take 1-2 orally every 6 hours as needed for pain. Dispense twenty (20). No refills. Substitution is permissible. Follow-up: Follow up with your doctor in about two days even if well. Call for an appointment. Summary of care provided to patient and family. Understanding of the discharge instructions verbalized by patient. ADDITIONAL INFORMATION Bladder Infection,Female (Adult) A bladder infection ("cystitis" or "UTI") usually causes a constant urge to urinate and a burning when passing urine. Urine may be cloudy, smelly or dark. There may be pain in the lower abdomen. A bladder infection occurs when bacteria from the vaginal area enter the bladder opening (urethra). This can occur from sexual intercourse, wearing tight clothing, dehydration and other factors. Home Care: Drink lots of fluids (at least 6-8 glasses a day, unless you must restrict fluids for other medical reasons). This will force the medicine into your urinary system and flush the bacteria out of your body. Avoid sexual intercourse until your symptoms are gone. Avoid caffeine, alcohol and spicy foods. These can irritate the bladder. A bladder infection is treated with antibiotics. You may also be given Pyridium (generic = phenazopyridine) to reduce the burning sensation. This medicine will cause your urine to become a bright orange color. The orange urine may stain clothing. You may wear a pad or panty-liner to protect clothing. Preventing Future Infections: Always wipe from front to back after a bowel movement. Keep the genital area clean and dry. Drink plenty of fluids each day to avoid dehydration. Both sexual partners should wash before intercourse. Urinate right after intercourse to flush out the bladder. Wear cotton underwear and cotton-lined panty hose; avoid tight-fitting pants. If you are on control pills and are having frequent bladder infections, discuss with your doctor. Follow Up: Return to this facility or see your doctor if ALL symptoms are not gone after three days of treatment. Get Prompt Medical Attention if any of the following occur: Fever of 100.4F (38C) or higher, or as directed by your healthcare provider No improvement by the third day of treatment Increasing back or abdominal pain Repeated vomiting; unable to keep medicine down Weakness, dizziness or fainting Vaginal discharge Pain, redness or swelling in the labia (outer vaginal area) Gastroenteritis [Non-Infectious, 6 Yr-Adult] Your symptoms today are coming from the intestinal tract. This may occur as a result of food sensitivity, inflammation of the GI tract, medicines, stress or other causes not related to infection. This may last from 1-3 days. Antibiotics are not effective, but simple home treatment will be helpful. Home Care: If symptoms are severe, rest at home for the next 24 hours. You may use acetaminophen (Tylenol) or ibuprofen (Motrin, Advil) to control fever, unless another medicine was prescribed. [NOTE: If you have chronic liver or kidney disease or ever had a stomach ulcer or GI bleeding, talk with your doctor before using these medicines.] (Aspirin should never be used in anyone under 18 years of age who is ill with a fever. It may cause severe liver damage.) Avoid tobacco and alcohol use, which may make your symptoms worse. If medicines for diarrhea or vomiting were prescribed, take only as directed. Once vomiting stops, then follow these guidelines: During The First 12-24 Hours follow the diet below: gingerale, mineral water (plain or flavored), decaffeinated tea and coffee. During The Next 24 Hours you may add the following to the above: DURING THE NEXT 24 HOURS Gradually resume a normal diet, as you feel better and your symptoms lessen. Follow Up with your doctor as advised if you are not improving over the next 2-3 days. If a stool (diarrhea) sample was taken, you may call in 2 days (or as directed) for the results. Get Prompt Medical Attention if any of the following occur: Increasing abdominal pain or constant lower right abdominal pain Continued vomiting (unable to keep liquids down) Frequent diarrhea (more than 5 times a day) Blood in vomit or stool (black or red color) Reduced oral intake Dark urine, reduced urine output Weakness, dizziness, fainting Drowsiness, confusion, stiff neck or seizure Fever of 100.4F (38C) or higher, or as directed by your healthcare provider New rash Ondansetron Oral disintegrating tablet What is this medicine? ONDANSETRON (on SAVANNAH se ayesha) is used to treat nausea and vomiting caused by chemotherapy. It is also used to prevent or treat nausea and vomiting after surgery. How should I use this medicine? These tablets are made to dissolve in the mouth. Do not try to push the tablet through the foil backing. With dry hands, peel away the foil backing and gently remove the tablet. Place the tablet in the mouth and allow it to dissolve, then swallow. While you may take these tablets with water, it is not necessary to do so. Talk to your insulation nozzleman regarding the use of this medicine in children. Special care may be needed. What side effects may I notice from receiving this medicine? Side effects that you should report to your doctor or health senior care specialist as soon as possible: allergic reactions like skin rash, itching or hives, swelling of the face, lips, or tongue breathing problems dizziness fast or irregular heartbeat feeling faint or lightheaded, falls fever and chills swelling of the hands and feet tightness in the chest Side effects that usually do not require medical attention (report to your doctor or health senior care specialist if they continue or are bothersome): constipation or diarrhea headache What may interact with this medicine? Do not take this medicine with any of the following medications: -apomorphine -cisapride -dofetilide -dronedarone -pimozide -thioridazine -ziprasidone This medicine may also interact with the following medications: -carbamazepine -phenytoin -rifampicin -tramadol -other medicines that prolong the QT interval (cause an abnormal heart rhythm) What if I miss a dose? If you miss a dose, take it as soon as you can. If it is almost time for your next dose, take only that dose. Do not take double or extra doses. Where should I keep my medicine? Keep out of the reach of children. Store between 2 and 30 degrees C (36 and 86 degrees F). Throw away any unused medicine after the expiration date. What should I tell my health care provider before I take this medicine? They need to know if you have any of these conditions: heart disease history of irregular heartbeat liver disease low levels of magnesium or potassium in the blood an unusual or allergic reaction to ondansetron, granisetron, other medicines, foods, dyes, or preservatives or trying to get breast-feeding What should I watch for while using this medicine? Check with your doctor or health senior care specialist as soon as you can if you have any sign of an allergic reaction. Ciprofloxacin Hydrochloride Oral tablet What is this medicine? CIPROFLOXACIN (sip kalie FLOX a sin) is a quinolone antibiotic. It is used to treat certain kinds of bacterial infections. It will not work for colds, flu, or other viral infections. How should I use this medicine? Take this medicine by mouth with a glass of water. Follow the directions on the prescription label. Take your medicine at regular intervals. Do not take your medicine more often than directed. Take all of your medicine as directed even if you think your are better. Do not skip doses or stop your medicine early. You can take this medicine with food or on an empty stomach. It can be taken with a meal that contains dairy or calcium, but do not take it alone with a dairy product, like milk or yogurt or calcium-fortified juice. A special MedGuide will be given to you by the pharmacist with each prescription and refill. Be sure to read this information carefully each time. Talk to your insulation nozzleman regarding the use of this medicine in children. Special care may be needed. What side effects may I notice from receiving this medicine? Side effects that you should report to your doctor or health senior care specialist as soon as possible: - allergic reactions like skin rash, itching or hives, swelling of the face, lips, or tongue - breathing problems - confusion, nightmares or hallucinations - feeling faint or lightheaded, falls - irregular heartbeat - joint, muscle or tendon pain or swelling - pain or trouble passing urine -persistent headache with or without blurred vision - redness, blistering, peeling or loosening of the skin, including inside the mouth - seizure - unusual pain, numbness, tingling, or weakness Side effects that usually do not require medical attention (report to your doctor or health senior care specialist if they continue or are bothersome): - diarrhea - nausea or stomach upset - white patches or sores in the mouth What may interact with this medicine? Do not take this medicine with any of the following medications: cisapride droperidol terfenadine tizanidine This medicine may also interact with the following medications: antacids caffeine cyclosporin didanosine (ddI) buffered tablets or powder medicines for diabetes medicines for inflammation like ibuprofen, naproxen methotrexate multivitamins omeprazole phenytoin probenecid sucralfate theophylline warfarin What if I miss a dose? If you miss a dose, take it as soon as you can. If it is almost time for your next dose, take only that dose. Do not take double or extra doses. Where should I keep my medicine? Keep out of the reach of children. Store at room temperature below 30 degrees C (86 degrees F). Keep container tightly closed. Throw away any unused medicine after the expiration date. What should I tell my health care provider before I take this medicine? They need to know if you have any of these conditions: -bone problems -cerebral disease -joint problems -irregular heartbeat -kidney disease -liver disease -myasthenia gravis -seizure disorder -tendon problems -an unusual or allergic reaction to ciprofloxacin, other antibiotics or medicines, foods, dyes, or preservatives - or trying to get -breast-feeding What should I watch for while using this medicine? Tell your doctor or health senior care specialist if your symptoms do not improve. Do not treat diarrhea with over the counter products. Contact your doctor if you have diarrhea that lasts more than 2 days or if it is severe and watery. You may get drowsy or dizzy. Do not drive, use machinery, or do anything that needs mental alertness until you know how this medicine affects you. Do not stand or sit up quickly, especially if you are an older patient. This reduces the risk of dizzy or fainting spells. This medicine can make you more sensitive to the sun. Keep out of the sun. If you cannot avoid being in the sun, wear protective clothing and use sunscreen. Do not use sun lamps or tanning beds/booths. Avoid antacids, aluminum, calcium, iron, magnesium, and zinc products for 6 hours before and 2 hours after taking a dose of this medicine. Tramadol Hydrochloride Oral tablet What is this medicine? TRAMADOL (TRA ma dole) is a pain reliever. It is used to treat moderate to severe pain in adults. How should I use this medicine? Take this medicine by mouth with a full glass of water. Follow the directions on the prescription label. If the medicine upsets your stomach, take it with food or milk. Do not take more medicine than you are told to take. Talk to your insulation nozzleman regarding the use of this medicine in children. Special care may be needed. What side effects may I notice from receiving this medicine? Side effects that you should report to your doctor or health senior care specialist as soon as possible: allergic reactions like skin rash, itching or hives, swelling of the face, lips, or tongue breathing difficulties, wheezing confusion itching light headedness or fainting spells redness, blistering, peeling or loosening of the skin, including inside the mouth seizures Side effects that usually do not require medical attention (report to your doctor or health senior care specialist if they continue or are bothersome): constipation dizziness drowsiness headache nausea, vomiting What may interact with this medicine? Do not take this medicine with any of the following medications: MAOIs like Carbex, Eldepryl, Marplan, Nardil, and Parnate This medicine may also interact with the following medications: alcohol or medicines that contain alcohol antihistamines benzodiazepines bupropion carbamazepine or oxcarbazepine clozapine cyclobenzaprine digoxin furazolidone linezolid medicines for depression, anxiety, or psychotic disturbances medicines for migraine headache like almotriptan, eletriptan, frovatriptan, naratriptan, rizatriptan, sumatriptan, zolmitriptan medicines for pain like pentazocine, buprenorphine, butorphanol, meperidine, nalbuphine, and propoxyphene medicines for sleep muscle relaxants naltrexone phenobarbital phenothiazines like perphenazine, thioridazine, chlorpromazine, mesoridazine, fluphenazine, prochlorperazine, promazine, and trifluoperazine procarbazine warfarin What if I miss a dose? If you miss a dose, take it as soon as you can. If it is almost time for your next dose, take only that dose. Do not take double or extra doses. Where should I keep my medicine? Keep out of the reach of children. Store at room temperature between 15 and 30 degrees C (59 and 86 degrees F). Keep container tightly closed. Throw away any unused medicine after the expiration date. What should I tell my health care provider before I take this medicine? They need to know if you have any of these conditions: brain tumor depression drug abuse or addiction head injury if you frequently drink alcohol containing drinks kidney disease or trouble passing urine liver disease lung disease, asthma, or breathing problems seizures or epilepsy suicidal thoughts, plans, or attempt; a previous suicide attempt by you or a family member an unusual or allergic reaction to tramadol, codeine, other medicines, foods, dyes, or preservatives or trying to get breast-feeding What should I watch for while using this medicine? Tell your doctor or health senior care specialist if your pain does not go away, if it gets worse, or if you have new or a different type of pain. You may develop tolerance to the medicine. Tolerance means that you will need a higher dose of the medicine for pain relief. Tolerance is normal and is expected if you take this medicine for a long time. Do not suddenly stop taking your medicine because you may develop a severe reaction. Your body becomes used to the medicine. This does NOT mean you are addicted. Addiction is a behavior related to getting and using a drug for a non-medical reason. If you have pain, you have a medical reason to take pain medicine. Your doctor will tell you how much medicine to take. If your doctor wants you to stop the medicine, the dose will be slowly lowered over time to avoid any side effects. You may get drowsy or dizzy. Do not drive, use machinery, or do anything that needs mental alertness until you know how this medicine affects you. Do not stand or sit up quickly, especially if you are an older patient. This reduces the risk of dizzy or fainting spells. Alcohol can increase or decrease the effects of this medicine. Avoid alcoholic drinks. You may have constipation. Try to have a bowel movement at least every 2 to 3 days. If you do not have a bowel movement for 3 days, call your doctor or health senior care specialist. Your mouth may get dry. Chewing sugarless gum or sucking hard candy, and drinking plenty of water may help. Contact your doctor if the problem does not go away or is severe. You have been given the following additional information: Bladder Infection, Female (Adult) Gastroenteritis, Non-Infectious (Child) (Adult) Ondansetron Oral disintegrating tablet Ciprofloxacin Hydrochloride Oral tablet Tramadol Hydrochloride Oral tablet (Electronically signed by Marta Rosario A.R.N.P. 10/03/2016 17:51)
== END 2016-10-03 16:48 | disposition home or self-care (01) ==
LOC: ED SRH 13:06
DX: N30.00 Acute cystitis without hematuria (principal); K52.89 Other specified noninfective gastroenteritis and colitis; E07.9 Disorder of thyroid, unspecified; Z79.899 Other long term (current) drug therapy
CPT/HCPCS: 81460; 90004; 90100; 90148; 90469; 92095; 92235; 92530; 95059